=== PATIENT | male | born 1965 | race Two or more races ===

== ENCOUNTER 2018-09-17 22:51 | Inpatient (IN) | payer BC ==
[~2018-09-17] VITALS: Ht 175.3 cm; Wt 89.8 kg
--- NOTE | 2018-09-17 23:20 | NUR ---
CALL OUT OPERATOR ADMITTING NOTES RECEIVED PT DIRECT ADMIT FROM [place] [facility] ACCOMPANIED BY 2 SEATING UPHOLSTERER. PT AWAKE, ALERT ORIENTED X4, ABLE TO AMBULATE TO BED FROM [facility]. BREATHING EVEN AND UNLABORED ON ROOM AIR. NIHSS SCORE OF 0 UPON ARRIVAL. BP 160/105 MD NOTIFIED. NO REPORTED NUMBNESS, NO APPARENT SLURRED SPEECH, NO REPORT DIZZINESS, PAIN OR DISCOMFORT AT THIS TIMES. MRSA SWAB DONE, BED IN LOWEST LOCKED POSITION, CALL LIGHT WITHIN REACH AT ALL TIMES, WILL CONTINUE TO MONITOR
[2018-09-18] MEDS ORDERED: BLOOD SUGAR DIAGNOSTIC 1 EACH STRIP IN SCH
[2018-09-18] MEDS ORDERED: Z GUARD REMEDY 2 OZ OINT TP PRN
[2018-09-18] MEDS ORDERED: HYDROCODONE/APAP 5/325MG 1 EACH TABLET PO PRN
[2018-09-18] MEDS ORDERED: ENOXAPARIN SODIUM 40 MG/0.4 ML DISP.SYRIN SQ SCH
[2018-09-18] MEDS ORDERED: MAG HYDROX/AL HYDROX/SIMETH 30 ML UDC PO PRN
[2018-09-18] MEDS ORDERED: ONDANSETRON HCL/PF 4 MG/2 ML VIAL IVP PRN
[2018-09-18] MEDS ORDERED: hydrALAZINE HCL 25 MG TABLET PO PRN
[2018-09-18] MEDS ORDERED: MAGNESIUM HYDROXIDE 30 ML UDC PO PRN
[2018-09-18] MEDS ORDERED: ZOLPIDEM TARTRATE 5 MG TABLET PO PRN
[2018-09-18] MEDS ORDERED: ASPIRIN 81 MG TAB.CHEW PO SCH
[2018-09-18] MEDS ORDERED: ACETAMINOPHEN 325 MG TABLET PO PRN
[2018-09-18] MEDS ORDERED: ASPI-605 PO (00:15)
[2018-09-18] MEDS ORDERED: DULO20CA PO (00:15)
[2018-09-18] MEDS ORDERED: VALS40TA12 PO (00:15)
[2018-09-18 00:24] LABS: BASOPHILS % (AUTO) 0.4 % (0.0-2.0); EOSINOPHILS % (AUTO) 2.1 % (0.0-6.0); HEMATOCRIT 46 % (39-51); LYMPHOCYTES # (AUTO) 1.8 /CMM (0.8-4.8); LYMPHOCYTES % (AUTO) 24.4 % (20.0-44.0); MEAN CORPUSCULAR HGB CONC 35 g/dl (31.0-36.0); MEAN CORPUSCULAR VOLUME 96 fL (80-96); MONOCYTES # (AUTO) 0.6 /CMM (0.1-1.30); MONOCYTES % (AUTO) 8.3 % (2.0-12.0); NEUTROPHILS # (AUTO) 4.7 /CMM (1.8-8.9); NEUTROPHILS % (AUTO) 64.8 % (43.0-81.0); RED BLOOD CELL COUNT(AUTO) 4.81 MIL/uL (4.5-6.0); WHITE BLOOD COUNT (AUTO) 7.2 K/uL (4.3-11.0)
[2018-09-18 00:57] LABS: PLATELET COUNT (AUTO) 196 /CMM (150-450)
[2018-09-18 01:00] LABS: POTASSIUM 3.9 mmol/L (3.5-5.1)
[2018-09-18 01:01] LABS: CALCIUM, SERUM 9.5 mg/dL (8.5-10.1); CREATININE 1.2 mg/dL (0.6-1.3); PHOSPHORUS 3.1 mg/dL (2.5-4.9)
[2018-09-18 01:02] LABS: ALBUMIN 4.2 g/dL (3.4-5.0); BILIRUBIN,TOTAL 0.9 mg/dL (0.2-1.0); MAGNESIUM 1.8 mg/dL (1.8-2.4); TOTAL PROTEIN, SERUM 7.8 g/dL (6.4-8.2)
[2018-09-18 01:03] LABS: THYROID STIMULATING HORMONE 4.86 uIU/mL (0.358-3.74)
--- NOTE | 2018-09-18 02:13 | NUR ---
PT REMAINS IN BED, REMAINS FREE OF PAIN OR DISCOMFORT, NO NUMBNESS OR SLURRED SPEECH AT THIS TIME, FACIAL SYMMETRY REMAINS INTACT, PT ABLE TO SWALLOW WATER WITHOUT COUGHING. WILL CONTINUE TO MONITOR
--- NOTE | 2018-09-18 04:25 | NUR ---
PT BP IS 162/110, HYDRALAZINE ADMINISTERED PRESCRIBED. WILL CONTINUE TO MONITOR
--- NOTE | 2018-09-18 05:59 | NUR ---
PT BP IS STILL 165-170/110 PAGED, NO DIZZINESS, NO NUMBNESS OR HEADACHE, NIHSS STILL 0
--- NOTE | 2018-09-18 06:01 | NUR ---
PER , GIVE VALSARTAN EARLY FOR HIGH BP
[2018-09-18] MEDS ORDERED: VALSARTAN 40 MG TABLET ONE (06:05)
[2018-09-18 06:34] LABS: BASOPHILS % (AUTO) 0.3 % (0.0-2.0); EOSINOPHILS % (AUTO) 2.7 % (0.0-6.0); HEMATOCRIT 43 % (39-51); LYMPHOCYTES # (AUTO) 1.5 /CMM (0.8-4.8); LYMPHOCYTES % (AUTO) 24.6 % (20.0-44.0); MEAN CORPUSCULAR HGB CONC 35 g/dl (31.0-36.0); MEAN CORPUSCULAR VOLUME 95 fL (80-96); MONOCYTES # (AUTO) 0.7 /CMM (0.1-1.30); MONOCYTES % (AUTO) 10.9 % (2.0-12.0); NEUTROPHILS # (AUTO) 3.7 /CMM (1.8-8.9); NEUTROPHILS % (AUTO) 61.5 % (43.0-81.0); PLATELET COUNT (AUTO) 175 /CMM (150-450)
--- NOTE | 2018-09-18 06:36 | NUR ---
RN MS CLOSING NOTES PT REMAINS IN BED, AWAKE, ALERT ORIENTED X4, ABLE TO AMBULATE TO BED FROM [facility]. BREATHING EVEN AND UNLABORED ON ROOM AIR. NIHSS STILL 0. NO REPORTED NUMBNESS, NO APPARENT SLURRED SPEECH, NO REPORT DIZZINESS, PAIN OR DISCOMFORT AT THIS TIMES. BED IN LOWEST LOCKED POSITION, CALL LIGHT WITHIN REACH AT ALL TIMES, WILL ENDORSE TO DAY NURSE FOR JESSIE AND MONITORING OF BP
[2018-09-18] MEDS: BLOOD SUGAR DIAGNOSTIC 1 EACH STRIP IN SCH ×3 (06:45→16:33)
[2018-09-18 07:01] LABS: MAGNESIUM 1.8 mg/dL (1.8-2.4); PHOSPHORUS 3.2 mg/dL (2.5-4.9); POTASSIUM 3.4 mmol/L (3.5-5.1)
--- NOTE | 2018-09-18 07:46 | NUR ---
EDITORIAL DIRECTOR OPENING NOTE RECEIVED PATIENT IN BED. ALERT ORIENTED X4. ON ROOM AIR, TOLERATING WELL. IN NO APPARENT DISTRESS OR DISCOMFORT AT THIS TIME. FACE IS SYMMETRICAL, NO DROOPINESS NOTED, NO WEAKNESS IN ANY OF THE EXTREMITIES NOTED, PATIENT DENIES DIZZINESS, DENIES PAIN AND SOB. PATIENT IS ON TELE MONITOR WITH SINUS RHYTHM. LEFT AC 20G IVC SL, PATENT AND INTACT. ABLE TO COMMUNICATE NEEDS. ABLE TO AMBULATE INDEPENDENTLY. PATIENT KEPT CLEAN AND COMFORTABLE. ALL NEEDS ATTENDED, SAFETY MEASURES IN PLACE, BED IN LOW LOCKED POSITION, SIDE RAILS UP X2, CALL LIGHT WITHIN EASY REACH. WILL CONTINUE TO MONITOR.
[2018-09-18 08:00] VITALS: BP 139/108
[2018-09-18] MEDS ORDERED: VALSARTAN 40 MG TABLET PO SCH (09:00)
[2018-09-18] MEDS ORDERED: DULOXETINE HCL 20 MG CAPSULE.DR PO SCH (09:00)
[2018-09-18] MEDS ORDERED: ASPIRIN EC 81 MG TABLET.DR PO SCH (09:00)
[2018-09-18] MEDS ORDERED: POTASSIUM CHLORIDE 20 MEQ TAB.PRT.SR PO SCH (11:00)
[2018-09-18 12:46] LABS: APPEARANCE,URINE CLEAR (CLEAR); BILIRUBIN,URINE 1+ (NEGATIVE); BLOOD, URINE NEGATIVE Ery/uL (NEGATIVE); COLOR,URINE YELLOW (YELLOW); KETONES,URINE 1+ (NEGATIVE); LEUKOCYTE ESTERASE ,URINE NEGATIVE (NEGATIVE); NITRITE, URINE NEGATIVE (NEGATIVE); PROTEIN,URINE TRACE mg/dl (NEGATIVE); UGLUCOSE NEGATIVE (NEGATIVE)
[2018-09-18 12:56] LABS: BACTERIA,URINE 0 /HPF (None Seen); RBC,URINE 0-2 /HPF (0-2); SQUAMOUS EPITHELIAL CELL,UR 0-2 /HPF (None Seen); WBC,URINE 0-2 /HPF (0-3)
--- NOTE | 2018-09-18 14:00 | NUR ---
STROKE EDUCATION PACKET PROVIDED TO PATIENT, REVIEWED AND DISCUSSED. NO QUESTIONS AT THIS TIME ACCORDING TO PATIENT.
[2018-09-18 16:00] VITALS: BP 136/92
--- NOTE | 2018-09-18 16:00 | NUR ---
PATIENT APPEARS VERY ANXIOUS, AWAITING NEURO CONSULT ALL DAY. CONTACTED DR. EASTMAN TO INQUIRE ABOUT WHAT TIME HES PLANNING ON VISITING. PER DR. EASTMAN WILL ROUND AFTER CLINIC HOURS. INFORMED THE PATIENT.
--- NOTE | 2018-09-18 17:28 | NUR ---
Patient resides at home alone. He is ambulatory and independent with adl's.Has no DME or homehealth reported. He plan to return home once discharge. Addendum: 09/18/18 at 1729 by AMY MONTERROSO RN Amended: Links added.
--- NOTE | 2018-09-18 18:53 | NUR ---
HEAD HOUSEKEEPER CLOSING NOTE PATIENT IN BED. ALERT ORIENTED X4. ON ROOM AIR, TOLERATING WELL. IN NO APPARENT DISTRESS OR DISCOMFORT AT THIS TIME. RESPIRATIONS EVEN AND UNLABORED. FACE IS SYMMETRICAL, NO DROOPINESS NOTED, NO WEAKNESS IN ANY OF THE EXTREMITIES NOTED,SPEECH IS CLEAR, PATIENT DENIES DIZZINESS, DENIES PAIN AND SOB. PATIENT IS ON TELE MONITOR WITH SINUS RHYTHM. LEFT AC 20G IVC SL, PATENT AND INTACT. ABLE TO COMMUNICATE NEEDS. ABLE TO AMBULATE INDEPENDENTLY. PATIENT KEPT CLEAN AND COMFORTABLE. ALL NEEDS ATTENDED, SAFETY MEASURES IN PLACE, BED IN LOW LOCKED POSITION, SIDE RAILS UP X2, CALL LIGHT WITHIN EASY REACH. WILL ENDORSE TO PM NURSE FOR JESSIE.
--- NOTE | 2018-09-18 19:05 | NUR ---
FOREST FIRE SPECIALIST SUPERVISOR OPENING NOTE PATIENT RECEIVED IN BED WATCHING TV, ALERT ORIENTED X4. ON ROOM AIR, TOLERATING WELL. IN NO APPARENT DISTRESS OR DISCOMFORT AT THIS TIME. RESPIRATIONS EVEN AND UNLABORED. FACE IS SYMMETRICAL, NO DROOPINESS NOTED, NO WEAKNESS IN ANY OF THE EXTREMITIES NOTED,SPEECH IS CLEAR. NO COMPLAINTS OF PAIN OR ANY DISCOMFORT OF THIS TIME. PATIENT IS ON TELE MONITOR WITH SINUS RHYTHM 80 WITH PAC'S. LEFT AC 20G IVC SL, PATENT AND INTACT. ABLE TO COMMUNICATE NEEDS. ABLE TO AMBULATE INDEPENDENTLY. SAFETY MEASURES IN PLACE. CALL SALEEM WITHIN REACH. BED IN LOW, LOCKED POSITION. WILL CONTINUE TO MONITOR ACCORDINGLY
--- NOTE | 2018-09-18 20:15 | NUR ---
RN NOTES DR. REAL CURRENTLY AT BEDSIDE
--- NOTE | 2018-09-18 20:35 | NUR ---
RN NOTES As per teresa Kumar to d/c patient. Dr. Rivera made aware
--- NOTE | 2018-09-18 20:37 | NUR ---
received orders from teresa nicolas to discharge patient.
--- NOTE | 2018-09-18 20:45 | NUR ---
RN NOTES D/C instructions given to patient. IV line taken out. ID band removed
--- NOTE | 2018-09-18 21:00 | NUR ---
RN NOTES Patient accompanied down to [facility] in stable condition with all of his belongings. Patient was picked up by friend
[2018-09-18] MEDS ORDERED: ATORVASTATIN 40 MG TABLET PO SCH ×2 (22:00)
== END 2018-09-18 21:30 | disposition home or self-care (01) | DRG 69 ==
LOC: TELE 22:51
PROVIDERS: ADMIT Internal Medicine; ATTEND Nurse Practitioner Acute Care
DX: G45.9 Transient cerebral ischemic attack, unspecified (principal); E11.9 Type 2 diabetes mellitus without complications; E78.5 Hyperlipidemia, unspecified; F42.9 Obsessive-compulsive disorder, unspecified; I10 Essential (primary) hypertension; E87.6 Hypokalemia; Z82.3 Family history of stroke; Z82.49 Family history of ischemic heart disease and other diseases of the circulatory system; R42 Dizziness and giddiness
CPT/HCPCS: 36415; 71046; 80048-TC; 80053-TC; 80061-TC; 81000-TC; 82962-TC; 83540-TC; 83735-TC; 84100-TC; 84443-TC; 85025-TC; 85652-TC; 85730-TC; 87081-TC; 87086-TC; 92611-TC; 93307-TC; 93880-TC; G0378; J1650